=== PATIENT | male | born 1940 | race Caucasian/White ===

== ENCOUNTER 2021-07-22 11:02 | Outpatient (CLI) | payer MEDICARE, BC | END 2021-07-22 11:03 | disposition home or self-care (01) | LOC: PET 11:02 | PROVIDERS: ATTEND Radiology Radiation Oncology | DX: C01 Malignant neoplasm of base of tongue (principal) | CPT/HCPCS: 78815; A9552 ==

== ENCOUNTER 2021-09-10 20:11 | Inpatient (IN) | payer MEDICARE, BC ==
[2021-09-10 21:10] LABS: #Eosinphils 0.1 thou/uL (0.0-0.7); #Lymphocytes 0.4 thou/uL (1.20-3.40); #Monocytes 1.3 thou/uL (0.11-0.59); #Neutrophils 9.6 thou/uL (1.40-6.50); %Basophils 0.2 % (0.0-1.0); %Lymphocytes 3.4 % (21.0-51.0); %Monocytes 11.4 % (0.0-10.0); Hemoglobin 17.2 g/dL (14.0-18.0); Mean Corpuscular Volume 86.1 fL (78.0-98.0); Mean Platelet Volume 7.2 fL (7.4-10.4); Platelet Count 263 thou/uL (130-400); RBC Distribution Width 12.6 % (11.5-14.5); Red Blood Cell (RBC) Count 5.57 mill/uL (4.70-6.10); White Blood Cell (WBC) Count 11.4 thou/uL (4.8-10.8)
[2021-09-10 21:30] LABS: ALT (SGPT) 23 U/L (8-55); AST (SGOT) 14 U/L (5-34); Albumin 3.9 g/dL (3.4-4.8); Alkaline Phosphatase 120 U/L (40-110); Anion Gap 16 mmol/L (10-20); BUN (Urea Nitrogen) 23 mg/dL (8.4-25.7); Bilirubin, Total 1.2 mg/dL (0.2-1.2); Calc. Creatinine Clearance 0 mL/min (70-130); Calcium 9.9 mg/dL (7.8-10.44); Carbon Dioxide 19 mmol/L (23-31); Chloride 105 mmol/L (98-107); Globulin 2.8 g/dL (2.4-3.5); Glucose 219 mg/dL (83-110); Potassium 4.6 mmol/L (3.5-5.1); Protein, Total 6.7 g/dL (5.8-8.1); Sodium 135 mmol/L (136-145)
[2021-09-10] MEDS ORDERED: Morphine 4 MG/ML VIAL ONE (22:01)
[2021-09-10] MEDS ORDERED: HumaLOG 300 UNITS/3 ML VIAL SC PRN ×2 (22:36)
[2021-09-10] MEDS ORDERED: hydrALAZINE 20 MG/ML VIAL SLOW IVP PRN (22:36)
[2021-09-10] MEDS ORDERED: Dextrose 50% Abboject 50 ML SYRINGE SLOW IVP PRN (22:36)
[2021-09-10] MEDS ORDERED: Dextrose 5% in Water 1,000 ML IV PRN (22:36)
[2021-09-10 23:41] VITALS: BMI 25.4
[2021-09-11] MEDS ORDERED: traMADol HCl 50 MG TAB PO SCH (02:15)
[2021-09-11] MEDS: 1/2 NS w/KCL 20 mEq 1,000 ML IV SCH ×2 (02:23→12:39)
[2021-09-11 04:10] LABS: #Eosinphils 0.2 thou/uL (0.0-0.7); #Lymphocytes 0.5 thou/uL (1.20-3.40); #Monocytes 1.1 thou/uL (0.11-0.59); #Neutrophils 6.4 thou/uL (1.40-6.50); %Basophils 0.2 % (0.0-1.0); %Eosinophils 2.4 % (0.0-10.0); %Lymphocytes 6.4 % (21.0-51.0); %Monocytes 13.2 % (0.0-10.0); %Neutrophils 77.9 % (42.0-75.0); Hemoglobin 15.7 g/dL (14.0-18.0); Mean Corpuscular HGB CONC 35.6 g/dL (32.0-36.0); Mean Corpuscular Hemoglobin 30.8 pg (27.0-31.0); Mean Corpuscular Volume 86.6 fL (78.0-98.0); Mean Platelet Volume 7.4 fL (7.4-10.4); Platelet Count 236 thou/uL (130-400); RBC Distribution Width 12.6 % (11.5-14.5); White Blood Cell (WBC) Count 8.2 thou/uL (4.8-10.8)
[2021-09-11 04:38] LABS: Anion Gap 12 mmol/L (10-20); BUN (Urea Nitrogen) 22 mg/dL (8.4-25.7); Calc. Creatinine Clearance 37 mL/min (70-130); Calcium 9.3 mg/dL (7.8-10.44); Carbon Dioxide 20 mmol/L (23-31); Chloride 108 mmol/L (98-107); Glucose 191 mg/dL (83-110); Potassium 4.5 mmol/L (3.5-5.1); Sodium 135 mmol/L (136-145)
[2021-09-11] MEDS: Morphine 4 MG/ML VIAL SLOW IVP PRN ×2 (14:23→23:52)
[2021-09-11 15:22] LABS: SARS-CoV-2 PCR by NAA Not Detected (NotDetected)
[2021-09-12] MEDS: 1/2 NS w/KCL 20 mEq 1,000 ML IV SCH ×2 (04:39→19:15)
[2021-09-12 06:55] LABS: #Eosinphils 0.3 thou/uL (0.0-0.7); #Lymphocytes 0.5 thou/uL (1.20-3.40); #Monocytes 0.8 thou/uL (0.11-0.59); #Neutrophils 4.7 thou/uL (1.40-6.50); %Eosinophils 5.2 % (0.0-10.0); %Lymphocytes 7.4 % (21.0-51.0); %Monocytes 12.5 % (0.0-10.0); %Neutrophils 74.9 % (42.0-75.0); Mean Corpuscular HGB CONC 33.9 g/dL (32.0-36.0); Mean Corpuscular Hemoglobin 30.1 pg (27.0-31.0); Mean Corpuscular Volume 88.6 fL (78.0-98.0); Mean Platelet Volume 6.8 fL (7.4-10.4); Platelet Count 210 thou/uL (130-400); RBC Distribution Width 12.7 % (11.5-14.5); White Blood Cell (WBC) Count 6.2 thou/uL (4.8-10.8)
[2021-09-12 07:18] LABS: Anion Gap 13 mmol/L (10-20); BUN (Urea Nitrogen) 17 mg/dL (8.4-25.7); Calc. Creatinine Clearance 50 mL/min (70-130); Calcium 8.9 mg/dL (7.8-10.44); Carbon Dioxide 18 mmol/L (23-31); Chloride 109 mmol/L (98-107); Glucose 169 mg/dL (83-110); Magnesium 1.6 mg/dL (1.6-2.6); Potassium 4.9 mmol/L (3.5-5.1); Sodium 135 mmol/L (136-145)
[2021-09-12] MEDS ORDERED: Magnesium Sulfate 3 GM in Sodium Chloride 0.9% 100 ML IVPB SCH (07:45)
[2021-09-12] MEDS ORDERED: ceFAZolin Sodium (SDC) 2 GM/100 ML BAG ONE (08:30)
[2021-09-12] MEDS ORDERED: PROPOFOL 200 MG/20 ML VIAL ONE (09:16)
[2021-09-12] MEDS ORDERED: Lidocaine 1% PF 5 ML VIAL ONE (09:16)
[2021-09-12] MEDS: Morphine 4 MG/ML VIAL SLOW IVP PRN ×3 (10:29→19:13)
[2021-09-12] MEDS: Ondansetron PF 4 MG/2 ML Vial IVP PRN ×2 (15:08→19:59)
[2021-09-12] MEDS: prednisoLONE 1% Ophth Susp 5 ml Bottle L EYE SCH (20:37)
[2021-09-12] MEDS ORDERED: PARoxetine 20 MG TAB PER TUBE SCH (21:00)
[2021-09-12] MEDS ORDERED: Non-Formulary Item 1 EACH (Prednisolone Acetate/Pf [Prednisolone Acet 1% Eye Drop] 5 ML D OP SCH (21:00)
[2021-09-13] MEDS: Morphine 4 MG/ML VIAL SLOW IVP PRN ×3 (00:39→07:48)
[2021-09-13] MEDS: Ondansetron PF 4 MG/2 ML Vial IVP PRN (03:58)
[2021-09-13 04:05] LABS: #Eosinphils 0.2 thou/uL (0.0-0.7); #Lymphocytes 0.4 thou/uL (1.20-3.40); #Monocytes 1.1 thou/uL (0.11-0.59); %Basophils 0.5 % (0.0-1.0); %Lymphocytes 5.1 % (21.0-51.0); %Monocytes 13.7 % (0.0-10.0); %Neutrophils 77.6 % (42.0-75.0); Hemoglobin 14.2 g/dL (14.0-18.0); Mean Corpuscular HGB CONC 34.9 g/dL (32.0-36.0); Mean Corpuscular Hemoglobin 30.5 pg (27.0-31.0); Mean Corpuscular Volume 87.5 fL (78.0-98.0); Mean Platelet Volume 7.1 fL (7.4-10.4); Platelet Count 206 thou/uL (130-400); RBC Distribution Width 12.8 % (11.5-14.5); Red Blood Cell (RBC) Count 4.67 mill/uL (4.70-6.10); White Blood Cell (WBC) Count 7.7 thou/uL (4.8-10.8)
[2021-09-13 04:23] LABS: Anion Gap 12 mmol/L (10-20); BUN (Urea Nitrogen) 13 mg/dL (8.4-25.7); Calc. Creatinine Clearance 66 mL/min (70-130); Calcium 8.1 mg/dL (7.8-10.44); Carbon Dioxide 17 mmol/L (23-31); Chloride 109 mmol/L (98-107); Glucose 166 mg/dL (83-110); Magnesium 1.8 mg/dL (1.6-2.6); Potassium 4.4 mmol/L (3.5-5.1); Sodium 134 mmol/L (136-145)
[2021-09-13 08:01] VITALS: BP 144/70; TEMP 98.1
[2021-09-13] MEDS ORDERED: Magnesium 2 GM/50 ML 2 GM in Premix Bag 1 BAG IVPB SCH (08:40)
[2021-09-13] MEDS ORDERED: Aspirin Chewable 81 MG TAB PER TUBE SCH (09:00)
[2021-09-13] MEDS ORDERED: Aspirin 81 mg Enteric Coated Tablet PER TUBE SCH (09:00)
[2021-09-13] MEDS ORDERED: Atorvastatin Calcium 10 MG TAB PER TUBE SCH (09:00)
[2021-09-13] MEDS: 1/2 NS w/KCL 20 mEq 1,000 ML IV SCH (10:37)
[2021-09-13] MEDS: prednisoLONE 1% Ophth Susp 5 ml Bottle L EYE SCH (10:44)
== END 2021-09-13 16:35 | disposition home or self-care (01) | DRG 391 ==
LOC: ERS 20:11 → ONC 22:04 → OBSVTOIN 09-12 08:23
PROVIDERS: ADMIT Internal Medicine; ATTEND Internal Medicine
PROC: 0DH63UZ Insertion of Feeding Device into Stomach, Percutaneous Approach (ICD-10-PCS; principal; 2021-09-12)
PROC: 0DB78ZX Excision of Stomach, Pylorus, Via Natural or Artificial Opening Endoscopic, Diagnostic (ICD-10-PCS; 2021-09-12)
DX: R13.12 Dysphagia, oropharyngeal phase (principal); E43 Unspecified severe protein-calorie malnutrition; N17.9 Acute kidney failure, unspecified; E87.1 Hypo-osmolality and hyponatremia; D72.829 Elevated white blood cell count, unspecified; C01 Malignant neoplasm of base of tongue; E11.9 Type 2 diabetes mellitus without complications; E78.5 Hyperlipidemia, unspecified; Z96.652 Presence of left artificial knee joint; E86.0 Dehydration; Y84.2 Radiological procedure and radiotherapy as the cause of abnormal reaction of the patient, or of later complication, without mention of misadventure at the time of the procedure; K26.9 Duodenal ulcer, unspecified as acute or chronic, without hemorrhage or perforation; K29.70 Gastritis, unspecified, without bleeding; K29.80 Duodenitis without bleeding; R32 Unspecified urinary incontinence; Z85.51 Personal history of malignant neoplasm of bladder; Z90.6 Acquired absence of other parts of urinary tract; Z85.828 Personal history of other malignant neoplasm of skin; Z98.42 Cataract extraction status, left eye; Z98.41 Cataract extraction status, right eye; Z90.89 Acquired absence of other organs; Z79.899 Other long term (current) drug therapy; Z68.25 Body mass index [BMI] 25.0-25.9, adult
CPT/HCPCS: 36415; 36416; 80048; 80053; 83735; 85025; 88305; 88312; 96374; G0378; J0690; J2270; J2405; J2704; J3475; J3480; J3490; U0003; U0005

== ENCOUNTER 2021-10-15 10:51 | Outpatient (CLI) | payer MEDICARE, BC ==
[2021-10-15 21:46] LABS: SARS-CoV-2 PCR by NAA Not Detected (NotDetected)
== END 2021-10-15 10:52 | disposition home or self-care (01) ==
LOC: LABBT 10:51
PROVIDERS: ATTEND Family Medicine
DX: Z01.812 Encounter for preprocedural laboratory examination (principal); Z20.822 Contact with and (suspected) exposure to COVID-19
CPT/HCPCS: U0003; U0005

== ENCOUNTER 2021-10-18 11:01 | Outpatient (CLI) | payer MEDICARE, BC | END 2021-10-18 11:02 | disposition home or self-care (01) | PROVIDERS: ATTEND Radiology Radiation Oncology | DX: R13.12 Dysphagia, oropharyngeal phase (principal); C01 Malignant neoplasm of base of tongue | CPT/HCPCS: 74230 ==

== ENCOUNTER 2021-12-03 10:57 | Outpatient (CLI) | payer MEDICARE, BC ==
[~2021-12-03 10:57] MED LIST: Iopamidol 370 76% 100 ML VIAL ONE
== END 2021-12-03 10:58 | disposition home or self-care (01) ==
LOC: CT 10:57
PROVIDERS: ATTEND Radiology Radiation Oncology
DX: C01 Malignant neoplasm of base of tongue (principal); R91.8 Other nonspecific abnormal finding of lung field
CPT/HCPCS: 70491; 82565; Q9967

== ENCOUNTER 2022-04-30 17:09 | Inpatient (IN) | payer MEDICARE, BC ==
[2022-04-30 20:09] VITALS: BMI 24.1
[2022-04-30] MEDS ORDERED: HYDROcodone/Acetaminophen 5/325 mg Tablet PO PRN (22:17)
[2022-04-30] MEDS ORDERED: Acetaminophen 325 MG TAB PO PRN (22:17)
[2022-04-30] MEDS: Sodium Chloride 0.9% 1,000 ML IV SCH (23:08)
[2022-05-01] MEDS: Cefepime 1 GM in Sodium Chloride 0.9% 100 ML IVPB SCH ×2 (05:01→16:44)
[2022-05-01] MEDS ORDERED: HumaLOG 300 UNITS/3 ML VIAL SC PRN (05:16)
[2022-05-01] MEDS ORDERED: Dextrose 5% in Water 1,000 ML IV PRN (05:16)
[2022-05-01 05:59] LABS: Anion Gap 16 mmol/L (10-20); BUN (Urea Nitrogen) 18 mg/dL (8.4-25.7); Calc. Creatinine Clearance 52 mL/min (70-130); Calcium 8.6 mg/dL (7.8-10.44); Carbon Dioxide 18 mmol/L (23-31); Chloride 102 mmol/L (98-107); Glucose 175 mg/dL (83-110); Potassium 3.6 mmol/L (3.5-5.1); Sodium 132 mmol/L (136-145)
[2022-05-01 07:04] LABS: Band 9 % (5-11); Lymphocytes 2 % (21-51); MDiff Complete? YES; Mean Corpuscular HGB CONC 33.6 g/dL (32.0-36.0); Mean Corpuscular Hemoglobin 31.5 pg (27.0-31.0); Mean Corpuscular Volume 93.8 fL (78.0-98.0); Mean Platelet Volume 7.8 fL (7.4-10.4); Monocytes 4 % (0-10); Neutrophil 84 % (42-75); Platelet Count 135 thou/uL (130-400); Platelet Morphology Comment Appears Adequate; RBC Distribution Width 11.9 % (11.5-14.5); RBC Morphology Normal; Red Blood Cell (RBC) Count 4.13 mill/uL (4.70-6.10); Reflex for Review?? YES; White Blood Cell (WBC) Count 12.6 thou/uL (4.8-10.8)
[2022-05-01] MEDS: Multivit, Therapeutic 1 TAB PO SCH (09:31)
[2022-05-01] MEDS: Aspirin 81 mg Enteric Coated Tablet PO SCH (09:31)
[2022-05-01] MEDS: Sodium Chloride 0.9% 1,000 ML IV SCH ×3 (09:31→22:21)
[2022-05-01] MEDS: Atorvastatin Calcium 10 MG TAB PO SCH (09:31)
[2022-05-01] MEDS: Glimepiride 4 MG TAB PO SCH ×2 (09:31→16:44)
[2022-05-01] MEDS: PARoxetine 20 MG TAB PO SCH (09:31)
[2022-05-01] MEDS: Enoxaparin Sodium 40 MG/0.4 ML SYRINGE SC SCH (09:32)
[2022-05-01] MEDS ORDERED: VANCOMYCIN 1.25 GM/250 ML BAG 1.25 GM in Premix Bag 1 BAG IVPB SCH (17:00)
[2022-05-01] MEDS: prednisoLONE 1% Ophth Susp 5 ml Bottle R EYE SCH (23:01)
[2022-05-02] MEDS: Cefepime 1 GM in Sodium Chloride 0.9% 100 ML IVPB SCH ×2 (04:16→16:18)
[2022-05-02 06:04] LABS: ALT (SGPT) 20 U/L (8-55); AST (SGOT) 29 U/L (5-34); Albumin 2.9 g/dL (3.4-4.8); Alkaline Phosphatase 59 U/L (40-110); Anion Gap 13 mmol/L (10-20); BUN (Urea Nitrogen) 14 mg/dL (8.4-25.7); Bilirubin, Total 1.2 mg/dL (0.2-1.2); Calc. Creatinine Clearance 71 mL/min (70-130); Calcium 8.2 mg/dL (7.8-10.44); Carbon Dioxide 21 mmol/L (23-31); Chloride 105 mmol/L (98-107); Globulin 2.6 g/dL (2.4-3.5); Magnesium 1.9 mg/dL (1.6-2.6); Protein, Total 5.5 g/dL (5.8-8.1); Sodium 136 mmol/L (136-145)
[2022-05-02 06:18] LABS: Band 16 % (5-11); Hemoglobin 12.7 g/dL (14.0-18.0); Hypochromia SLIGHT = 6-15 cells (100X) (0-5/hpf); Lymphocytes 3 % (21-51); MDiff Complete? YES; Mean Corpuscular HGB CONC 33.3 g/dL (32.0-36.0); Mean Corpuscular Hemoglobin 31.1 pg (27.0-31.0); Mean Corpuscular Volume 93.4 fL (78.0-98.0); Mean Platelet Volume 7.4 fL (7.4-10.4); Monocytes 19 % (0-10); Neutrophil 61 % (42-75); Platelet Count 153 thou/uL (130-400); Platelet Morphology Comment Appears Adequate; RBC Distribution Width 11.9 % (11.5-14.5); Red Blood Cell (RBC) Count 4.09 mill/uL (4.70-6.10); White Blood Cell (WBC) Count 12.1 thou/uL (4.8-10.8)
[2022-05-02] MEDS ORDERED: Sterile Water 0 ML ONE (06:23)
[2022-05-02 06:43] LABS: Glucose 29 mg/dL (83-110); Potassium 2.7 mmol/L (3.5-5.1)
[2022-05-02] MEDS ORDERED: Potassium Chloride 20 MEQ TAB PO SCH (06:45)
[2022-05-02] MEDS ORDERED: Dextrose 50% Abboject 50 ML SYRINGE SLOW IVP SCH (06:45)
[2022-05-02] MEDS ORDERED: Potassium Chloride 20 MEQ in Premix Bag 1 BAG IVPB SCH (07:15)
[2022-05-02] MEDS ORDERED: Potassium Chloride 40 MEQ in Premix Bag 1 BAG IVPB SCH ×2 (09:00)
[2022-05-02 09:26] LABS: Hemoglobin A1c 6.5 % (4.0-6.0)
[2022-05-02] MEDS: PARoxetine 20 MG TAB PO SCH (09:26)
[2022-05-02] MEDS: Atorvastatin Calcium 10 MG TAB PO SCH (09:26)
[2022-05-02] MEDS: Aspirin 81 mg Enteric Coated Tablet PO SCH (09:26)
[2022-05-02] MEDS: Enoxaparin Sodium 40 MG/0.4 ML SYRINGE SC SCH (09:26)
[2022-05-02] MEDS: Glimepiride 4 MG TAB PO SCH (09:26)
[2022-05-02] MEDS: Multivit, Therapeutic 1 TAB PO SCH (09:26)
[2022-05-02] MEDS: Dextrose 50% Abboject 50 ML SYRINGE SLOW IVP PRN ×2 (12:23→18:54)
[2022-05-02] MEDS: Sodium Chloride 0.9% 1,000 ML IV SCH (15:12)
[2022-05-02] MEDS: Ondansetron ODT 4 MG TAB PO PRN (17:28)
[2022-05-02] MEDS: prednisoLONE 1% Ophth Susp 5 ml Bottle R EYE SCH (21:03)
[2022-05-02] MEDS: Dextrose 5 % And 0.9 % NaCl 1,000 ML IV SCH (21:21)
[2022-05-03] MEDS: Sodium Chloride 0.9% 1,000 ML IV SCH ×3 (02:01→21:55)
[2022-05-03] MEDS: Cefepime 1 GM in Sodium Chloride 0.9% 100 ML IVPB SCH ×2 (04:49→17:19)
[2022-05-03 05:45] LABS: Band 8 % (5-11); Hemoglobin 11.6 g/dL (14.0-18.0); Lymphocytes 2 % (21-51); MDiff Complete? YES; Mean Corpuscular HGB CONC 33.3 g/dL (32.0-36.0); Mean Corpuscular Hemoglobin 31.3 pg (27.0-31.0); Mean Corpuscular Volume 93.9 fL (78.0-98.0); Mean Platelet Volume 7.5 fL (7.4-10.4); Monocytes 6 % (0-10); Neutrophil 84 % (42-75); Platelet Count 157 thou/uL (130-400); Platelet Morphology Comment Appears Adequate; RBC Distribution Width 11.8 % (11.5-14.5); RBC Morphology Normal; White Blood Cell (WBC) Count 7.2 thou/uL (4.8-10.8)
[2022-05-03 05:47] LABS: ALT (SGPT) 29 U/L (8-55); AST (SGOT) 31 U/L (5-34); Albumin 2.7 g/dL (3.4-4.8); Alkaline Phosphatase 53 U/L (40-110); Anion Gap 10 mmol/L (10-20); BUN (Urea Nitrogen) 10 mg/dL (8.4-25.7); Bilirubin, Total 0.8 mg/dL (0.2-1.2); Calc. Creatinine Clearance 82 mL/min (70-130); Carbon Dioxide 22 mmol/L (23-31); Chloride 108 mmol/L (98-107); Globulin 2.3 g/dL (2.4-3.5); Magnesium 1.8 mg/dL (1.6-2.6); Sodium 137 mmol/L (136-145)
[2022-05-03 05:51] LABS: Glucose 45 mg/dL (83-110); Potassium 2.9 mmol/L (3.5-5.1)
[2022-05-03] MEDS: Dextrose 50% Abboject 50 ML SYRINGE SLOW IVP PRN (05:55)
[2022-05-03] MEDS ORDERED: Potassium Chloride 20 MEQ in Premix Bag 1 BAG IVPB SCH (08:00)
[2022-05-03] MEDS ORDERED: Potassium Chloride 20 MEQ TAB PO SCH ×2 (08:00→11:45)
[2022-05-03] MEDS: Dextrose 5 % And 0.9 % NaCl 1,000 ML IV SCH ×2 (08:05→19:13)
[2022-05-03] MEDS: Aspirin 81 mg Enteric Coated Tablet PO SCH (08:06)
[2022-05-03] MEDS: Ondansetron ODT 4 MG TAB PO PRN (08:06)
[2022-05-03] MEDS: Enoxaparin Sodium 40 MG/0.4 ML SYRINGE SC SCH (08:06)
[2022-05-03] MEDS: Multivit, Therapeutic 1 TAB PO SCH (08:06)
[2022-05-03] MEDS: PARoxetine 20 MG TAB PO SCH (08:07)
[2022-05-03] MEDS: Atorvastatin Calcium 10 MG TAB PO SCH (08:07)
[2022-05-03] MEDS: Potassium Chloride 20 MEQ in Premix Bag 1 BAG IVPB SCH ×2 (13:07→15:24)
[2022-05-03] MEDS ORDERED: Famotidine 20 MG TAB PO PRN (16:46)
[2022-05-03] MEDS: prednisoLONE 1% Ophth Susp 5 ml Bottle R EYE SCH (20:05)
[2022-05-04] MEDS: Dextrose 5 % And 0.9 % NaCl 1,000 ML IV SCH ×2 (03:41→09:31)
[2022-05-04] MEDS: Cefepime 1 GM in Sodium Chloride 0.9% 100 ML IVPB SCH (03:41)
[2022-05-04 05:54] LABS: #Eosinphils 0.1 thou/uL (0.0-0.7); #Lymphocytes 0.4 thou/uL (1.20-3.40); #Monocytes 0.7 thou/uL (0.11-0.59); #Neutrophils 5.1 thou/uL (1.40-6.50); %Eosinophils 1.9 % (0.0-10.0); %Lymphocytes 5.9 % (21.0-51.0); %Monocytes 11.4 % (0.0-10.0); %Neutrophils 80.9 % (42.0-75.0); Hemoglobin 12.1 g/dL (14.0-18.0); Mean Corpuscular HGB CONC 33.7 g/dL (32.0-36.0); Mean Corpuscular Hemoglobin 31.3 pg (27.0-31.0); Mean Corpuscular Volume 92.8 fL (78.0-98.0); Mean Platelet Volume 7.4 fL (7.4-10.4); Platelet Count 165 thou/uL (130-400); RBC Distribution Width 11.9 % (11.5-14.5); Red Blood Cell (RBC) Count 3.88 mill/uL (4.70-6.10); White Blood Cell (WBC) Count 6.2 thou/uL (4.8-10.8)
[2022-05-04 06:41] LABS: ALT (SGPT) 45 U/L (8-55); AST (SGOT) 40 U/L (5-34); Albumin 2.6 g/dL (3.4-4.8); Alkaline Phosphatase 62 U/L (40-110); Anion Gap 12 mmol/L (10-20); BUN (Urea Nitrogen) 11 mg/dL (8.4-25.7); Calc. Creatinine Clearance 81 mL/min (70-130); Carbon Dioxide 23 mmol/L (23-31); Chloride 105 mmol/L (98-107); Estimated GFR 92; Globulin 2.5 g/dL (2.4-3.5); Glucose 114 mg/dL (83-110); Magnesium 1.8 mg/dL (1.6-2.6); Potassium 3.7 mmol/L (3.5-5.1); Protein, Total 5.1 g/dL (5.8-8.1); Sodium 136 mmol/L (136-145)
[2022-05-04] MEDS: Sodium Chloride 0.9% 1,000 ML IV SCH ×2 (06:41→12:34)
[2022-05-04 08:29] VITALS: BP 134/71; TEMP 97.6
[2022-05-04] MEDS: Enoxaparin Sodium 40 MG/0.4 ML SYRINGE SC SCH (09:30)
[2022-05-04] MEDS: Atorvastatin Calcium 10 MG TAB PO SCH (09:31)
[2022-05-04] MEDS: PARoxetine 20 MG TAB PO SCH (09:31)
[2022-05-04] MEDS: Aspirin 81 mg Enteric Coated Tablet PO SCH (09:31)
[2022-05-04] MEDS: Multivit, Therapeutic 1 TAB PO SCH (09:31)
[2022-05-04] MEDS ORDERED: cefTRIAXone\\ROCEPHIN 1 GM in Sodium Chloride 0.9% 100 ML IVPB SCH (14:00)
== END 2022-05-04 17:00 | disposition home or self-care (01) | DRG 872 ==
LOC: MSONC 17:09
PROVIDERS: ADMIT Hospitalist; ATTEND Hospitalist
DX: A41.59 Other Gram-negative sepsis (principal); N39.0 Urinary tract infection, site not specified; E87.1 Hypo-osmolality and hyponatremia; N17.9 Acute kidney failure, unspecified; C15.9 Malignant neoplasm of esophagus, unspecified; E44.0 Moderate protein-calorie malnutrition; Z20.822 Contact with and (suspected) exposure to COVID-19; E78.5 Hyperlipidemia, unspecified; R13.10 Dysphagia, unspecified; N18.9 Chronic kidney disease, unspecified; E87.6 Hypokalemia; C67.9 Malignant neoplasm of bladder, unspecified; E11.22 Type 2 diabetes mellitus with diabetic chronic kidney disease; E11.649 Type 2 diabetes mellitus with hypoglycemia without coma; Z79.82 Long term (current) use of aspirin; Z79.84 Long term (current) use of oral hypoglycemic drugs; Z98.42 Cataract extraction status, left eye; Z98.41 Cataract extraction status, right eye; Z90.09 Acquired absence of other part of head and neck; Z87.891 Personal history of nicotine dependence; Z85.51 Personal history of malignant neoplasm of bladder; Z85.89 Personal history of malignant neoplasm of other organs and systems; Z68.24 Body mass index [BMI] 24.0-24.9, adult
CPT/HCPCS: 36415; 36416; 76770; 80048; 80053; 83036; 83735; 85025; 85060; 87086; J0692; J0696; J1650; J3370; J3480; J3490; J7042; J7050; J7999; Q0162